=== PATIENT | male | born 1985 | race Caucasian/White ===

== ENCOUNTER 2020-04-01 18:50 | Emergency (ER) | payer SELFPAY ==
[~2020-04-01] VITALS: Ht 176 cm; Wt 81.0 kg
[2020-04-01] MEDS ORDERED: LACTATED RINGERS 1,000 ML IV ONE ×2 (19:04→19:07)
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
[2020-04-01] MEDS ORDERED: TETANUS,DIPTH,PERTUSS P/F (BOOSTRIX) 0.5 ML VIAL IM ONE (19:15)
[2020-04-01 19:27] LABS: HEMOGLOBIN 15.8 g/dL (13.3-17.7); MEAN PLATELET VOLUME 11.3 fL (9.0-12.2); WHITE BLOOD COUNT 13.4 10^3/uL (4.3-11.0)
[2020-04-01 19:38] LABS: ALBUMIN 4.1 GM/DL (3.2-4.5); CHLORIDE 106 MMOL/L (98-107); POTASSIUM 4.1 MMOL/L (3.6-5.0); SODIUM 137 MMOL/L (135-145)
[2020-04-01 19:39] LABS: CALCIUM 8.4 MG/DL (8.5-10.1)
[2020-04-01 19:41] LABS: GLUCOSE 95 MG/DL (70-105); TOTAL PROTEIN 7.3 GM/DL (6.4-8.2)
[2020-04-01 19:42] LABS: BILIRUBIN,TOTAL 0.3 MG/DL (0.1-1.0); CARBON DIOXIDE 16 MMOL/L (21-32)
[2020-04-01 19:44] LABS: ALKALINE PHOSPHATASE 71 U/L (40-136); CREATININE SERUM 0.77 MG/DL (0.60-1.30); GFR ESTIMATED > 60; PHOSPHORUS 2.9 MG/DL (2.3-4.7)
[2020-04-01 19:45] LABS: BUN/CREATININE RATIO 17
[2020-04-01 19:46] LABS: BILIRUBIN,DIRECT 0.1 MG/DL (0.0-0.3); BILIRUBIN,INDIRECT 0.2 MG/DL
[2020-04-01 19:47] LABS: ALANINE AMINOTRANSFERASE 29 U/L (0-55); MAGNESIUM 1.9 MG/DL (1.6-2.4)
[2020-04-01 19:48] LABS: CREATINE KINASE 434 U/L (30-200)
[2020-04-01 19:49] LABS: PROTHROMBIN TIME PATIENT 13.7 SEC (12.2-14.7)
[2020-04-01 19:51] LABS: FIBRIN DEGRADATION PRODUCTS 2.8 UG/ML (0.00-0.49)
[2020-04-01] MEDS ORDERED: IOHEXOL 350 MG/ML 100 ML (OMNIPAQUE 350) VIAL IV ONE (20:00)
[2020-04-01] MEDS ORDERED: HOLD METFORMIN - RECEIVED CONTRAST 20 ML VIAL IV SCH (20:00)
[2020-04-01] MEDS ORDERED: NS 100 ML (IVPB) BAG IV ONE (20:00)
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
[2020-04-01] MEDS ORDERED: fentaNYL INJECTION 100 MCG/2 ML AMP IVP ONE (21:45)
--- NOTE | 2020-04-01 21:55 | NUR ---
Dispatch called regarding transfer.
[2020-04-01] MEDS ORDERED: ONDANSETRON 4 MG/2 ML (SDV) Z0FRAN IVP ONE (22:00)
--- NOTE | 2020-04-01 22:00 | NUR ---
Abrasion to left hip cleansed and dressed with antibiotic ointment and telfa dressing. Abrasions to left arm cleansed and dressed with antibiotic ointment and telfa dressing.
[2020-04-01 22:18] LABS: BILIRUBIN,URINE NEGATIVE (NEGATIVE); CLARITY,URINE CLEAR; COLOR,URINE YELLOW; GLUCOSE, URINE (UA) NEGATIVE (NEGATIVE); KETONES,URINE NEGATIVE (NEGATIVE); LEUKOCYTE ESTERASE ,URINE NEGATIVE (NEGATIVE); NITRITE,URINE NEGATIVE (NEGATIVE); PROTEIN,URINE NEGATIVE (NEGATIVE)
--- NOTE | 2020-04-01 22:24 | NUR ---
All abrasions and wounds cleansed and dressed.
[2020-04-01 22:25] VITALS: BP 136/79
[2020-04-01 22:37] LABS: BACTERIA,URINE NEGATIVE /HPF; CALCIUM OXALATE CRYSTALS,UR FEW /LPF; GRANULAR CASTS,URINE RARE /LPF; RBC,URINE 0-2 /HPF; SQUAMOUS EPITHELIAL CELL,UR 0-2 /HPF
--- NOTE | 2020-04-01 22:43 | NUR ---
[facility] here for patient; report provided to EMS and care assumed by staff; pt left without incident. Transfer center called and advised pt left this facility.
[2020-04-01 22:45] LABS: AMPHETAMINE SCREEN, URINE POSITIVE (NEGATIVE); BARBITURATE SCREEN URINE NEGATIVE (NEGATIVE); BENZODIAZEPINES SCREEN URINE NEGATIVE (NEGATIVE); CANNABINOID SCREEN, URINE POSITIVE (NEGATIVE); COCAINE SCREEN URINE NEGATIVE (NEGATIVE); METHADONE STAT NEGATIVE (NEGATIVE); METHAMPHETAMINE SCREEN URINE S POSITIVE (NEGATIVE); OPIATE SCREEN URINE NEGATIVE (NEGATIVE); OXYCODONE STAT NEGATIVE (NEGATIVE); PROPOXYPHENE STAT NEGATIVE (NEGATIVE); TRICYCLIC ANTIDEPRESSANTS SCRE NEGATIVE (NEGATIVE)
== END 2020-04-01 22:44 | disposition short-term general hospital (02) ==
LOC: ER 18:55
DX: S32.302A Unspecified fracture of left ilium, initial encounter for closed fracture (principal); S32.10XA Unspecified fracture of sacrum, initial encounter for closed fracture; S20.212A Contusion of left front wall of thorax, initial encounter; S40.812A Abrasion of left upper arm, initial encounter; F10.129 Alcohol abuse with intoxication, unspecified; F15.90 Other stimulant use, unspecified, uncomplicated; F19.90 Other psychoactive substance use, unspecified, uncomplicated; R40.2410 Glasgow coma scale score 13-15, unspecified time; F17.210 Nicotine dependence, cigarettes, uncomplicated; Z23 Encounter for immunization; V09.9XXA Pedestrian injured in unspecified transport accident, initial encounter
CPT/HCPCS: 51702; 70450; 70486; 71045; 71260; 72125; 72128; 72131; 73502; 74177; 80048; 80076; 80306; 81000; 82550; 83735; 84100; 85027; 85379; 85384; 85610; 85730; 90471; 96374; 96376; 99285; G0480; 36415; 80320; 90715